=== PATIENT | female | born 1940 | race Caucasian/White ===

== ENCOUNTER 2018-06-24 19:29 | Emergency (ER) | payer MEDICARE, BC ==
[~2018-06-24] VITALS: Ht 162.6 cm; Wt 53.5 kg
[2018-06-24] MEDS ORDERED: ALBUTEROL/IPRATROPIUM 3 ML NEB NEB ONE (21:45)
--- NOTE | 2018-06-25 00:36 | Diagnostic Imaging Report ---
Examination: Single AP view of the chest. COMPARISON: None. INDICATION: Shortness breath DISCUSSION: Lines/tubes: None. Lungs: The lungs are well inflated and clear. Scattered calcified granuloma. No pneumonia or pulmonary edema. Pleura: No pleural effusion or pneumothorax. Heart and mediastinum: The heart and the mediastinum are unremarkable. Bones and soft tissues: No acute bony abnormalities. IMPRESSION: 1. No acute cardiopulmonary abnormalities. Signed by: Dr. Christiano Cuellar M.D. on 06/25/2018 12:33 AM
[2018-06-25 03:01] LABS: BASOPHILS # (AUTO) 0.1 (0.0-0.1); BASOPHILS % 0.6 % (0.0-1.0); EOSINOPHILS # (AUTO) 0.4 (0.0-0.4); EOSINOPHILS % 3.7 % (0.0-6.0); HEMATOCRIT 42.5 % (34.2-44.1); HEMOGLOBIN 13.7 g/dL (12.0-16.0); LYMPHOCYTES # (AUTO) 1.5 (1.0-3.2); LYMPHOCYTES % 15.6 % (18.0-39.1); MEAN CORPUSCULAR HEMOGLOBIN 28.1 pg (28-32); MEAN CORPUSCULAR HGB CONC 32.2 g/dL (31-35); MEAN CORPUSCULAR VOLUME 87.1 fL (81-99); MONOCYTES # (AUTO) 0.7 (0.2-0.8); MONOCYTES % 7.3 % (4.4-11.3); NEUTROPHILS # (AUTO) 7.1 (2.1-6.9); NEUTROPHILS % 72.5 % (38.7-80.0); PLATELET COUNT 262 x10e3/uL (140-360); RED BLOOD COUNT 4.88 x10e6/uL (3.6-5.1); RED CELL DISTRIBUTION WIDTH 12.6 % (11.7-14.4)
[2018-06-25 03:14] LABS: CLARITY,URINE CLOUDY (CLEAR); COLOR,URINE YELLOW (YELLOW)
[2018-06-25 03:15] LABS: BILIRUBIN,URINE 1+ (NEGATIVE); KETONES,URINE NEGATIVE (NEGATIVE); LEUKOCYTE ESTERASE ,URINE TRACE (NEGATIVE); NITRITE,URINE NEGATIVE (NEGATIVE); PROTEIN,URINE DIPSTICK 1+ (NEGATIVE); URINE UROBILINOGEN 0.2 mg/dL (0.2 - 1)
[2018-06-25 03:17] LABS: BACTERIA,URINE MODERATE /HPF; EPITHELIAL CELLS,URINE MANY /LPF
[2018-06-25 03:20] LABS: ALANINE AMINOTRANSFERASE 44 IU/L (0-55); ALBUMIN 2.9 g/dL (3.5-5.0); ALBUMIN/GLOBULIN RATIO 0.8 (0.8-2.0); ALKALINE PHOSPHATASE 91 IU/L (40-150); ANION GAP 10.5 mmol/L (8-16); BLOOD UREA NITROGEN 15 mg/dL (7-26); BUN/CREATININE RATIO 21 (6-25); CALCIUM 9.6 mg/dL (8.4-10.2); CARBON DIOXIDE 30 mmol/L (22-29); CHLORIDE 103 mmol/L (98-107); CREATINE KINASE 69 IU/L (29-168); EST GLOMERULAR FILTRATION RATE > 60 ML/MIN (60-); GLUCOSE 157 mg/dL (74-118); POTASSIUM 3.5 mmol/L (3.5-5.1); SODIUM 140 mmol/L (136-145)
[2018-06-25] MEDS ORDERED: MACROBID 100 M100 MG PO (03:59)
[2018-06-25] MEDS ORDERED: CEFTRIAXONE SOD 1 GM/NS 50 ML 50 ML IV ONE (04:00)
[2018-06-25] MEDS ORDERED: CEFTRIAXONE SOD 1 GM VIAL IM ONE (04:30)
[2018-06-25 04:45] VITALS: BP 105/53
== END 2018-06-25 05:26 | disposition home or self-care (01) ==
LOC: ER 19:29
DX: I10 Essential (primary) hypertension (principal); N30.91 Cystitis, unspecified with hematuria
CPT/HCPCS: 36415; 71045; 80053; 81001; 82550; 82553; 84484; 85025; 87086; 87186; 94640; 99283; J0696 ×2

== ENCOUNTER 2021-12-14 18:53 | Emergency (ER) | payer BC, MEDICARE ==
[~2021-12-14] VITALS: Ht 165.1 cm; Wt 70.3 kg
[~2021-12-14 18:53] MED LIST: ATROPINE SULFATE 0.1 MG/ML 10ML SYR ONE; EPINEPHRINE HCL SYRINGE ONE; ETOMIDATE 2 MG/ML 10 ML INJ IV ONE; MACROBID 100 M100 MG PO; SUCCINYLCHOLINE CHLORIDE 20 MG/ML 10ML VIAL ONE
== END 2021-12-14 22:43 | disposition expired ==
LOC: ER 19:00
DX: I46.9 Cardiac arrest, cause unspecified (principal); J44.9 Chronic obstructive pulmonary disease, unspecified; I10 Essential (primary) hypertension; K21.9 Gastro-esophageal reflux disease without esophagitis
CPT/HCPCS: 31500; 92950; 94799; 99284; J0171; J0330